=== PATIENT | male | born 1980 | race Asian ===

== ENCOUNTER 2023-02-10 07:33 | Emergency (ER) | payer OTHER ==
[~2023-02-10] VITALS: Ht 172.7 cm; Wt 54.4 kg
[2023-02-10 08:53] LABS: HEMATOCRIT 38.7 % (39.0-48.0); HEMOGLOBIN 13.4 g/dL (13-16.00); MEAN CELL VOLUME 84.8 fL (80.0-100.00); MEAN CORPUSCULAR HEMOGLOBIN 29.3 pg (27.00-32.0); MEAN CORPUSCULAR HGB CONC 34.6 g/dl (32.0-36.0); PLATELET COUNT 154 K/uL (150-450); RED BLOOD COUNT 4.56 M/uL (4.00-6.00)
== END 2023-02-10 10:00 | disposition home or self-care (01) ==
LOC: ER 07:33
PROVIDERS: General Practice
DX: J11.1 Influenza due to unidentified influenza virus with other respiratory manifestations (principal); Z20.822 Contact with and (suspected) exposure to COVID-19